=== PATIENT | female | born 1940 | race African-American/Black ===

== ENCOUNTER → 2017-07-03 | Day surgery (SDC) | payer MEDICARE, OTHER ==
[~2017-07-03] MED LIST: ALDACTAZIDE PO; ALDACTONE PO; ALDACTONE25 MG PO; ALPHAGAN P10 ML; ALPHAGAN P5 ML OD; AMITRIPTYLINE H50 MG PO; AMLODIPINE BESYL5 MG PO; ASPIRIN81 M1 PO; ASPIRIN81 M2 PO; ATENOLOL50 MG PO; ATIVAN; ATIVAN0.5 MG; ATORVASTATIN CA10 MG PO; AUGMENTIN ES-6125 ML PO; CARAFATE1 G PO; CLONAZEPAM0.25 MG; DARVOCET-N 1001 TAB PO; FERRO-TIME325 MG PO; HCTZ; HYDROCHLOROTHIA25 MG PO; HYDROCODON-ACE1 EAC1 PO; KLONOPIN PO; KLONOPIN0.25 MG/TA PO; KLONOPIN1 MG PO; KLONOPIN2 MG PO; LIPITOR PO; LORAZEPAM1 MG PO; LORCET PLUS 7.1 EACH PO; MACROBID 100 M100 MG PO; MACROBID100 M1 PO; MEDI-MECLIZINE25 M1 PO; MILK OF MAGNESIA PO; NITROGLYGERIN0.4 MG SL; NORVASC PO; PAXIL PO; PRAVACHOL PO; RISPERIDONE PO; SIMVASTATIN10 MG PO; SPIRONOLACTONE100 MG PO; SULAR PO; SYNTHROID75 MCG PO; TENORMIN50 MG PO; TRAMADOL HCL50 M1 PO; TUSSIONEX PENN473 ML PO; VIGAMOX3 M1 OP; VOLTAREN75 MG PO; ZEGERID40 MG/PKT PO
--- NOTE | ~2017-07-03 | OR ---
Unit #: [id number] #: [id number] Patient: WANDA COLON [id number] [address] [place], [place] [address] [id number] O MR#: [id number] NAME: WANDA COLON ROOM: Date of Procedure: 07/03/2017 Admission Date: 07/03/2017 Surgeon: Buddy Junior III, M.D. : 1940 Attending Physician: Buddy Junior III, M.D. Primary Care Physician: Nhan Quiroz M.D. OPERATIVE REPORT PREOPERATIVE DIAGNOSES Anemia and chronic constipation. POSTOPERATIVE DIAGNOSES Anemia and chronic constipation with large hiatal hernia and mild scattered diverticulosis. PROCEDURES PERFORMED Esophagogastroduodenoscopy and colonoscopy to cecum. ANESTHESIA MAC. SPECIMENS None. COMPLICATIONS None apparent. INDICATIONS FOR PROCEDURE This is a 77-year-old lady presented with a history of anemia. There was also suggestion on a recent CT scan of filling defect in her splenic flexure. She also complains of chronic constipation. She is here today for upper and lower endoscopy. DESCRIPTION OF PROCEDURE After consent was obtained, the patient was brought to the endoscopy suite and placed in the left lateral decubitus position. We titrated the above sedation and I passed an EGD scope easily into the esophagus under direct visualization. She had normal peristalsis. No evidence of any erosions. She had a large hiatal hernia. There was maybe 15% of her stomach above the hiatal defect. I was able to easily advance the scope through the hernia into the rest of the stomach. There was no gastritis, no ulcers, and no masses. The pylorus was patent and first and second portions of the duodenum appeared normal. I did retroflex the scope within the cardia and again visualized the large hiatal hernia. The scope was straightened and then carefully withdrawn. I then performed a rectal exam and did not feel any masses. The scope was placed within the rectal vault. Air was insufflated. I navigated the scope through a very elongated colon all the way to the cecum. She had some mild scattered diverticular disease, but otherwise there were no mucosal irregularities and no masses and no polyps. The scope was retroflexed within the rectum. No other masses Unit #: [id number] #: [id number] Patient: WANDA COLON were seen. The scope was then carefully withdrawn. The patient tolerated the procedure without any problems and returned to the recovery room in stable condition. Dictated by... Buddy Junior III, M.D. VCL/jose j TD: 07/03/2017 13:50 JOB #: [id number] CC: Nhan Quiroz M.D. OPERATIVE REPORT Page 1 of 1 X Buddy Junior III, MD X PROCEDURE OPERATIVE NOTE
== END | disposition home or self-care (01) ==
LOC: COPS 11:40
DX: D64.9 Anemia, unspecified (principal); K57.30 Diverticulosis of large intestine without perforation or abscess without bleeding; K59.00 Constipation, unspecified; K44.9 Diaphragmatic hernia without obstruction or gangrene; I10 Essential (primary) hypertension; I25.119 Atherosclerotic heart disease of native coronary artery with unspecified angina pectoris; E78.5 Hyperlipidemia, unspecified; K58.9 Irritable bowel syndrome, unspecified; K21.9 Gastro-esophageal reflux disease without esophagitis; M19.90 Unspecified osteoarthritis, unspecified site; Z87.440 Personal history of urinary (tract) infections; Z88.5 Allergy status to narcotic agent; Z79.899 Other long term (current) drug therapy; Z90.49 Acquired absence of other specified parts of digestive tract; Z98.51 Tubal ligation status